=== PATIENT | female | born 1990 | race Caucasian/White ===

== ENCOUNTER 2017-10-24 15:05 | Emergency (ER) | payer OTHER ==
--- NOTE | 2017-10-24 15:33 | EDPHYS ---
Physician Documentation [facility] Name: Zulema Richard Age: 26 yrs Sex: Female : 1990 Arrival Date: 10/24/2017 Time: 15:04 Bed 3 Private MD: ED Physician Suleiman Ragsdale HPI: 10/24 15:26 This 26 yrs old Female presents to ER via EMS with complaints of Respiratory leydi Distress. 15:26 The patient has shortness of breath at rest, with light activity. Onset: The leydi symptoms/episode began/occurred just prior to arrival, this morning. Duration: The symptoms are continuous, and are steadily getting worse. The patient's shortness of breath has no apparent modifying factors. The patient or guardian reports airway noise, cough, that is constant, difficulty breathing. Modifying factors: The symptoms are alleviated by nothing. the symptoms are aggravated by activity, lying flat. Associated signs and symptoms: Pertinent positives: non-productive cough, dizziness, nausea. Severity of symptoms: At their worst the symptoms were moderate in the emergency department the symptoms are unchanged. Associated signs and symptoms: The patient has no apparent associated signs or symptoms. 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 tw2 Historical: - Allergies: 15:14 Demerol; sg 15:14 Sulfa (Sulfonamide Antibiotics); sg 15:14 Epinephrine; can collapse the lung; sg - Home Meds: 15:29 albuterol sulfate 2.5 mg /3 mL (0.083 %) Nebulizer nebu 3 mL every 6 hours [Active]; sg Diazepam 10 mg Gel Oral 1 OR [Active]; Ferrous Sulfate 27 MG Oral 1 tab [Active]; fluticasone 50 mcg/actuation nasal spsn 1 spray once daily [Active]; folic acid 1 mg Oral tab 1 tab once daily [Active]; 03/10 () 1-20 mg-mcg oral tab 1 tab once daily [Active]; levetiracetam 250 mg oral tab 1 tabs 2 times per day [Active]; montelukast 10 mg oral tab 1 tab once daily [Active]; oxybutynin chloride 10 mg Oral tr24 1 tab once daily [Active]; prednisone 10 mg Oral tab 3 tabs once daily [Active]; Vitamin D 1000 units Caps Oral 1,000 unit daily [Active]; - PMHx: 15:17 Seizures; Spina Bifida; Cerebral Palsy; sg - PSHx: 15:14 shunt; shunt revision; cervical laminectomy; trach and removal; rods in back, spinal sg cord untethered,; G button repair; - Immunization history:: Adult Immunizations up to date. - Social history:: Smoking status: Patient/guardian denies using tobacco. - Ebola Screening: : Patient negative for fever greater than or equal to 101.5 degrees Fahrenheit, and additional compatible Ebola Virus Disease symptoms Patient denies exposure to infectious person Patient denies travel to an Ebola-affected area in the 21 days before illness onset No symptoms or risks identified at this time. - Family history:: not pertinent. ROS: 15:26 Eyes: Negative for injury, pain, redness, and discharge, ENT: Negative for injury, leydi pain, and discharge, Neck: Negative for injury, pain, and swelling, Abdomen/GI: Negative for abdominal pain, nausea, vomiting, diarrhea, and constipation, Back: Negative for injury and pain, : Negative for injury, bleeding, discharge, and swelling, Skin: Negative for injury, rash, and discoloration. 15:26 Cardiovascular: Positive for chest pain. 15:26 Respiratory: Positive for cough, shortness of breath, at rest. 15:26 Neuro: Positive for altered mental status, weakness. Exam: 15:26 Head/Face: Normocephalic, atraumatic. Psych: Awake, alert, with orientation to [facility] person, place and time. Behavior, mood, and affect are within normal limits. 15:26 Constitutional: The patient appears in obvious distress, moderately distressed, severely distressed. 15:26 Head/face: Exam is negative for 15:26 Chest/axilla: Exam negative for 15:26 Cardiovascular: Rate: tachycardic, Rhythm: regular, Pulses: Pulses are 4+ in bilateral radial, brachial, femoral, popliteal, posterior tibial and and dorsalis pedis arteries.. Heart sounds: normal, Edema: is not appreciated, JVD: is not appreciated. 15:26 Respiratory: moderate respiratory distress is noted, Respirations: labored breathing, that is moderate, grunting, Breath sounds: decreased breath sounds, rhonchi, wheezing: expiratory Respiratory rate: 33 Vital Signs: 15:14 BP 147 / 98; Pulse 151; Resp 33; Temp 97.5(TE); Pulse Ox 100% on BiPAP; tw2 15:15 sg 15:18 Weight 32.66 kg (R); sg 16:33 BP 145 / 85; Pulse 148; Resp 29; Pulse Ox 96% on BiPAP; tw2 17:20 BP 139 / 92; Pulse 137; Resp 27; Pulse Ox 98% on BiPAP; tw2 15:14 12/6 rate 12 at 60% tw2 15:15 BiPAP settings are 12/6, Rate of 12 at 90% FIO2 sg 16:33 10/5 rate 27 at 90% is rate tw2 MDM: 15:12 Patient medically screened. jr8 15:26 Data reviewed: vital signs, nurses notes, lab test result(s), EKG, radiologic studies, leydi plain films. 10/24 15:13 Order name: Basic Metabolic Panel; Complete Time: 15:55 10/24 15:13 Order name: CBC with Diff 10/24 15:13 Order name: Ckmb; Complete Time: 15:55 10/24 15:13 Order name: CPK; Complete Time: 15:55 10/24 15:13 Order name: LFT's; Complete Time: 15:55 10/24 15:13 Order name: Magnesium; Complete Time: 15:55 10/24 15:13 Order name: NT PRO-BNP; Complete Time: 15:55 10/24 15:13 Order name: Troponin (emerg Dept Use Only); Complete Time: 15:55 10/24 15:13 Order name: Blood Culture Adult (2) 10/24 15:13 Order name: Lactate 10/24 15:13 Order name: Procalcitonin 10/24 15:13 Order name: XRAY Chest (1 view) 10/24 15:13 Order name: EKG; Complete Time: 15:14 10/24 15:13 Order name: Cardiac monitoring; Complete Time: 15:13 10/24 15:13 Order name: EKG - Nurse/Tech; Complete Time: 15:14 10/24 15:13 Order name: IV Saline Lock; Complete Time: 15:14 10/24 15:13 Order name: Labs collected and sent; Complete Time: 15:14 10/24 15:13 Order name: O2 Per Protocol; Complete Time: 15:14 10/24 15:13 Order name: O2 Sat Monitoring; Complete Time: 15:14 10/24 15:25 Order name: ABG [facility] 10/24 15:26 Order name: ABG Arterial Blood Gas EDMS 10/24 15:58 Order name: CBC Smear Scan EDMS Administered Medications: 15:49 Drug: NS 0.9% (30 ml/kg) 30 ml/kg Route: IV; Rate: bolus; Site: right antecubital; tw2 17:15 Follow up: Response: No adverse reaction; IV Status: Completed infusion; IV Intake: tw2 1000ml 15:50 Drug: Xopenex 2.5 mg Route: Inhalation; tw2 15:50 Drug: AtroVENT Aerosol 0.5 mg Route: Inhalation; tw2 16:05 Drug: Zosyn 3.375 grams Route: IVPB; Infused Over: 60 mins; Site: left antecubital; tw2 17:05 Follow up: Response: No adverse reaction; IV Status: Completed infusion tw2 17:15 Drug: vancoMYCIN 20 mg/kg Route: IVPB; Site: right antecubital; tw2 17:18 Follow up: IV Status: Infusion continued upon transfer tw2 Disposition: 10/24/17 15:32 Transfer ordered to [facility]. Diagnosis are Dyspnea, Hypoxemia, Spina bifida, unspecified, Respiratory failure, unspecified with hypercapnia. - Reason for transfer: Higher level of care. - Accepting physician is to [facility] icu. - Condition is Serious. - Problem is new. - Symptoms have improved. Signatures: Dispatcher [employer] EDTN Chuck Thornton RN RN sg Anderson, Corey, MD MD cha Williams, Irene, RN RN Wali Polk PA PA jr8 [place] Mg RN RN tw2 Corrections: (The following items were deleted from the chart) 15:59 15:32 10/24/2017 15:32 Transfer ordered to [facility]. [facility] Diagnosis is Dyspnea; Hypoxemia; Spina bifida, unspecified. Reason for transfer: Higher level of care. Accepting physician is to [facility] icu. Condition is Serious. Problem is new. Symptoms have improved. [facility] 17:21 15:59 10/24/2017 15:32 Transfer ordered to [facility]. tw2 Diagnosis is Dyspnea; Hypoxemia; Spina bifida, unspecified; Respiratory failure, unspecified with hypercapnia. Reason for transfer: Higher level of care. Accepting physician is to [facility] icu. Condition is Serious. Problem is new. Symptoms have improved. leydi
--- NOTE | 2017-10-24 15:33 | ER ---
Nurse's Notes [facility] Name: Zulema Richard Age: 26 yrs Sex: Female : 1990 Arrival Date: 10/24/2017 Time: 15:04 Bed 3 Private MD: Diagnosis: Dyspnea;Hypoxemia;Spina bifida, unspecified;Respiratory failure, unspecified with hypercapnia Presentation: 10/24 15:05 Presenting complaint: EMS states: pt having difficulty breathing that started today, sg upon arrival 02 saturation of 74 percent on room air, pt placed on CPAP, IV Solumedrol 125 MG IVP, Crackles and Stridor noted upon assessment with a RR of 30, had been seen earlier today at [facility] for a Renal check up, pt family reports an episode like this 3 years ago in ICU. Transition of care: patient was not received from another setting of care. Onset of symptoms was October 24, 2017. Risk Assessment: Do you want to hurt yourself or someone else? Patient reports no desire to harm self or others. Initial Sepsis Screen: Does the patient meet any 2 criteria? RR > 20 per min. Does the patient have a suspected source of infection? No. Patient's initial sepsis screen is negative. Care prior to arrival: Medication(s) given: Solumedrol 125 mg IVP IV initiated. 22 GA, in the left hand, Oxygen administered. via CPAP or BiPAP. 15:05 Method Of Arrival: EMS: [facility] sg 15:05 Acuity: GISSELLE 2 sg Triage Assessment: 15:05 General: Behavior is anxious. Respiratory: Reports shortness of breath Onset: The tw2 symptoms/episode began/occurred today, the patient has severe shortness of breath. 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 tw2 Historical: - Allergies: 15:14 Demerol; sg 15:14 Sulfa (Sulfonamide Antibiotics); sg 15:14 Epinephrine; can collapse the lung; sg - Home Meds: 15:29 albuterol sulfate 2.5 mg /3 mL (0.083 %) Nebulizer nebu 3 mL every 6 hours [Active]; sg Diazepam 10 mg Gel Oral 1 SD [Active]; Ferrous Sulfate 27 MG Oral 1 tab [Active]; fluticasone 50 mcg/actuation nasal spsn 1 spray once daily [Active]; folic acid 1 mg Oral tab 1 tab once daily [Active]; June03/10 (21) 1-20 mg-mcg oral tab 1 tab once daily [Active]; levetiracetam 250 mg oral tab 1 tabs 2 times per day [Active]; montelukast 10 mg oral tab 1 tab once daily [Active]; oxybutynin chloride 10 mg Oral tr24 1 tab once daily [Active]; prednisone 10 mg Oral tab 3 tabs once daily [Active]; Vitamin D 1000 units Caps Oral 1,000 unit daily [Active]; - PMHx: 15:17 Seizures; Spina Bifida; Cerebral Palsy; sg - PSHx: 15:14 shunt; shunt revision; cervical laminectomy; trach and removal; rods in back, spinal sg cord untethered,; G button repair; - Immunization history:: Adult Immunizations up to date. - Social history:: Smoking status: Patient/guardian denies using tobacco. - Ebola Screening: : Patient negative for fever greater than or equal to 101.5 degrees Fahrenheit, and additional compatible Ebola Virus Disease symptoms Patient denies exposure to infectious person Patient denies travel to an Ebola-affected area in the 21 days before illness onset No symptoms or risks identified at this time. - Family history:: not pertinent. Screenin:39 Abuse screen: Denies threats or abuse. Nutritional screening: No deficits noted. tw2 Tuberculosis screening: No symptoms or risk factors identified. Fall Risk None identified. Assessment: 15:15 General: Appears well groomed, Behavior is anxious. Pain: Denies pain. Neuro: Level of tw2 Consciousness is awake, alert, obeys commands, Oriented to person, place. Cardiovascular: Rhythm is sinus tachycardia. Respiratory: Airway is patent Respiratory effort is labored, using tripod position, Respiratory pattern is tachypnea Breath sounds with crackles bilaterally. Breath sounds are diminished bilaterally. GI: No signs and/or symptoms were reported involving the gastrointestinal system. Abdomen is flat, Bowel sounds present X 4 quads. : Parent/caregiver report the patient having mother reports she straight caths pt. EENT: No signs and/or symptoms were reported regarding the EENT system. Derm: No signs and/or symptoms reported regarding the dermatologic system. Musculoskeletal: Range of motion: limited in left hip, left knee, right hip and right knee Scoliosis noted. 16:00 Reassessment: Patient and/or family updated on plan of care and expected duration. Pain tw2 level reassessed. Patient is alert, oriented x 3, equal unlabored respirations, skin warm/dry/pink. 16:15 Reassessment: pt noted increased wob, o2 sat dropped to 89%, respiratory paged, bipap tw2 adjusted, pt o2 sat improves and wob decreased Patient states symptoms have not improved. 16:37 Reassessment: Patient and/or family updated on plan of care and expected duration. Pain tw2 level reassessed. Patient is alert, oriented x 3, equal unlabored respirations, skin warm/dry/pink. Vital Signs: 15:14 BP 147 / 98; Pulse 151; Resp 33; Temp 97.5(TE); Pulse Ox 100% on BiPAP; tw2 15:15 sg 15:18 Weight 32.66 kg (R); sg 16:33 BP 145 / 85; Pulse 148; Resp 29; Pulse Ox 96% on BiPAP; tw2 17:20 BP 139 / 92; Pulse 137; Resp 27; Pulse Ox 98% on BiPAP; tw2 15:14 12/6 rate 12 at 60% tw2 15:15 BiPAP settings are 12/6, Rate of 12 at 90% FIO2 sg 16:33 10/5 rate 27 at 90% is rate tw2 ED Course: 15:04 Patient arrived in ED. sg 15:08 Call light in reach. Side rails up X2. Adult w/ patient. front desk monitor on. Pulse ox tw2 on. NIBP on. 15:11 Suleiman Ragsdale MD is Attending Physician. jr8 15:12 Wali Polk PA is PHCP. jr8 15:12 Triage completed. sg 15:13 [place] Mg, ASAEL is Primary Nurse. tw2 15:14 Arm band placed on. sg 15:15 EKG done, by technical planner. reviewed by Suleiman Ragsdale MD. sm3 15:23 Maintain EMS IV. Dressing intact. Good blood return noted. Site clean \T\ dry. Gauge \T\ iw site: 22 left hand. 15:40 X-ray completed. Portable x-ray completed in exam room. Patient tolerated procedure la2 well. 15:45 XRAY Chest (1 view) In Process Unspecified. EDMS 15:52 Inserted saline lock: 22 gauge in right Blood collected. iw 16:34 Report given to Mika Medina RN at [facility]. tw2 17:21 No provider procedures requiring assistance completed. Patient transferred, IV remains tw2 in place. Administered Medications: 15:49 Drug: NS 0.9% (30 ml/kg) 30 ml/kg Route: IV; Rate: bolus; Site: right antecubital; tw2 17:15 Follow up: Response: No adverse reaction; IV Status: Completed infusion; IV Intake: tw2 1000ml 15:50 Drug: Xopenex 2.5 mg Route: Inhalation; tw2 15:50 Drug: AtroVENT Aerosol 0.5 mg Route: Inhalation; tw2 16:05 Drug: Zosyn 3.375 grams Route: IVPB; Infused Over: 60 mins; Site: left antecubital; tw2 17:05 Follow up: Response: No adverse reaction; IV Status: Completed infusion tw2 17:15 Drug: vancoMYCIN 20 mg/kg Route: IVPB; Site: right antecubital; tw2 17:18 Follow up: IV Status: Infusion continued upon transfer tw2 Intake: 17:15 IV: 1000ml; Total: 1000ml. tw2 Outcome: 15:32 ER care complete, transfer ordered by MD. holley 17:21 Transferred by ground EMS to [facility]. tw2 17:21 Condition: stable 17:21 Instructed on the need for transfer. 17:21 Patient left the ED. tw2 Signatures: Dispatcher [employer] EDMS Chuck Thornton RN RN sg Anderson, Corey, MD MD cha Williams, Irene, RN RN Wali Polk PA PA 8 [place] Mg RN RN tw2 Kristi [facility]respo [facility] Kirsten Noyola 3 Corrections: (The following items were deleted from the chart) 16:38 16:33 BP 145 / 85; Pulse 148bpm; Resp 29bpm; Pulse Ox 96% BiPAP; tw2 tw2 16:40 15:14 BP 147 / 98; Pulse 151bpm; Resp 33bpm; Pulse Ox 100% BiPAP; Temp 97.5F Temporal; tw2 tw2
[2017-10-24 15:41] LABS: Absolute Monocytes 0.6 K/uL (0.1-1.3); Absolute Neutrophil 13.9 K/uL (1.8-8.0); Basophils % 0.6 % (0-1.3); Eosinophils % 0.3 % (0-4.4); Hematocrit 43.2 % (36.0-45.0); Lymphocytes % 6.5 % (15.3-44.8); MCH 28.1 pg (27.0-35.0); MCV 85.1 fL (80-100); MPV 9.4 fL (7.6-11.3); Monocytes % 3.7 % (3.3-12.3); RBC Red Blood Cell Count 5.08 M/uL (3.86-4.86)
[2017-10-24] MEDS ORDERED: IPRATROPIUM BROM 0.5MG/2.5ML ONE (15:42)
[2017-10-24] MEDS ORDERED: LEVALBUTEROL 1.25 MG/3 ML NEB ONE (15:42)
[2017-10-24] MEDS ORDERED: PIPER/TAZO/NS 3.375gm 3.375 GM/100 ML BAG ONE (15:43)
[2017-10-24] MEDS ORDERED: NA CHLORIDE 0.9% 1,000 ML ONE (15:45)
[2017-10-24 15:48] LABS: ALT/SGPT 17 U/L (12-78); AST/SGOT 22 U/L (15-37); Albumin 3.8 g/dL (3.4-5.0); Alkaline Phosphatase 62 U/L (45-117); BUN Blood Urea Nitrogen 9 mg/dL (7-18); Bicarbonate 26 mmol/L (21-32); Bilirubin Direct 0.2 mg/dL (0-0.2); Bilirubin Total 0.5 mg/dL (0.2-1.0); CKMB Creatine Kinase MB < 1.0 ng/mL (0.3-3.6); Creatine Phosphokinase 45 U/L (26-192); Glucose Level 157 mg/dL (74-106); Magnesium 1.9 mg/dL (1.8-2.4); NT PRO-BNP 116 pg/mL (<125); Potassium 3.5 mmol/L (3.5-5.1); Sodium Level 139 mmol/L (136-145); Troponin (Emerg Dept Use Only) < 0.02 ng/mL (0.0-0.045)
--- NOTE | 2017-10-24 15:53 | RAD REPORT ---
EXAM DESCRIPTION: RAD - Chest Single View - 10/24/2017 3:46 pm CLINICAL HISTORY: SOB Chest pain. COMPARISON: No comparisons FINDINGS: Portable technique limits examination quality. The lungs are underinflated resulting in vascular crowding. A mild superimpose interstitial pneumonit is is also possible. Cardiac size is normal. Shunt tubing coils in the right upper quadrant. Extensiv e scoliosis hardware is in place. IMPRESSION: Underinflated lungs resulting in vascular crowding. A mild superimposed interstitial pne umonitis is also possible.
[2017-10-24 15:56] LABS: Arterial Blood Carboxyhemoglob 0.3 % (0-1.5); Blood Gas Oxyhemoglobin 97.4 % (94-97); Blood O2 Saturation 98.9 % (92-98.5)
[2017-10-24] MEDS ORDERED: VANCOMYCIN IVPB ONE (16:00)
[2017-10-24] MEDS ORDERED: NA CHLORIDE 0.9% IVPB ONE (16:00)
[2017-10-24 16:15] LABS: Urine White Blood Cell Casts OK
[2017-10-24 16:16] LABS: Blood Morphology Comment NOT SEEN (NOT SEEN); Platelet Estimate ADEQ
--- NOTE | 2017-10-24 17:51 | EKG ---
Test Date: 2017-10-24 Test Time: 15:08:00 Grants Analyst: MICHAEL MEASUREMENT RESULTS: Intervals: Rate: 151 NM: 70 QRSD: 72 QT: 320 QTc: 507 [place]: P: 33 NM: 70 QRS: 58 T: 9 INTERPRETIVE STATEMENTS: Sinus tachycardia with short NM ST & T wave abnormality, consider inferior ischemia Abnormal ECG No previous ECG available for comparison Electronically Signed On 10-24-17 17:50:29 CDT by Mayco [place]
== END 2017-10-24 17:21 | disposition designated cancer center or children's hospital (05) ==
LOC: ER 15:05
DX: J96.92 Respiratory failure, unspecified with hypercapnia (principal); J96.91 Respiratory failure, unspecified with hypoxia; Q05.9 Spina bifida, unspecified; G80.9 Cerebral palsy, unspecified; G40.909 Epilepsy, unspecified, not intractable, without status epilepticus; Z88.2 Allergy status to sulfonamides; Z88.5 Allergy status to narcotic agent; Z88.8 Allergy status to other drugs, medicaments and biological substances
CPT/HCPCS: 36415; 71045; 80048; 80076; 82550; 82553; 82805; 83605; 83735; 83880; 84145; 84484; 85025; 87040; 93005; 99285; J2543; J7030